=== PATIENT | male | born 1980 | race Two or more races ===

== ENCOUNTER 2016-09-05 09:53 | Emergency (ER) | payer OTHER ==
[~2016-09-05] VITALS: Ht 157.5 cm; Wt 72.6 kg
[2016-09-05 10:02] VITALS: BP 119/74
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
[2016-09-05] MEDS ORDERED: METH-37 PO (12:04)
[2016-09-05] MEDS ORDERED: TRAM-29 PO (12:04)
--- NOTE | 2016-09-07 06:06 | EKG ---
[facility] [address] [place] [address] Test Date: 2016-09-05 Test Time: 10:19:31 Pat Name: JE MILLAN Department: Room: Gender: M [employer]: : 1980 Requested By: STAFF NON Order Number: [id number] Reading MD: Measurements Intervals [place] Rate: 71 P: 38 WI: 164 QRS: 45 QRSD: 88 T: 28 QT: 360 QTc: 396 Interpretive Statements SINUS RHYTHM RI6.01 Unconfirmed report No previous ECG available for comparison
== END 2016-09-05 12:15 | disposition home or self-care (01) ==
LOC: ER 09:53
DX: R07.89 Other chest pain (principal); V49.49XA Driver injured in collision with other motor vehicles in traffic accident, initial encounter; Y93.89 Activity, other specified; Y99.8 Other external cause status; Y92.488 Other paved roadways as the place of occurrence of the external cause
CPT/HCPCS: 71020; 93005; 99284-25